=== PATIENT | male | born 1960 ===

== ENCOUNTER 2018-09-02 09:00 | Emergency (ER) | payer MEDICAID, OTHER ==
[2018-09-02 09:04] VITALS: RESP 17; TEMP 97.5; O2SAT 98
[2018-09-02 09:24] VITALS: BP 149/86; PULSE 76
--- NOTE | 2018-09-02 09:37 | ED PDOC ---
HPI: Back Time Seen by Provider: 09/02/18 09:14 Chief Complaint (Nursing): Abnormal Skin Integrity Chief Complaint (Provider): tailbone pain History Per: Patient History/Exam Limitations: no limitations Onset/Duration Of Symptoms: Days (1-2 months) Current Symptoms Are (Timing): Still Present Quality Of Discomfort: Sharp Severity: Moderate Previous Symptoms: Back Pain, Other (pilonidial cyst) Associated Symptoms: None Exacerbating Factor(s): Sitting Additional Complaint(s): 57yo male hx pilonidial cyst presents c/o tailbone pain ongoing for >1month, prior also had cyst, denies fever, drainage or swelling of area. Denies trauma or injury. Sits alot as drives bus. Denies radiation of pain, pain with defecation or urination, abdominal or flank pain. Past Medical History Reviewed: Historical Data, Nursing Documentation, Vital Signs Vital Signs: Last Vital Signs Temp 97.5 F L 09/02/18 09:04 Pulse 76 09/02/18 09:23 Resp 17 09/02/18 09:04 BP 149/86 09/02/18 09:23 Pulse Ox 98 09/02/18 09:04 - Medical History PMH: Anxiety - Family History Family History: States: Unknown Family Hx - Living Arrangements Living Arrangements: With Family - Social History Current smoker - smoking cessation education provided: No - Home Medications Home Medications: Ambulatory Orders Medication Instructions Recorded Albuterol Sulfate [Albuterol Hfa] 0.09 mg IH Q4 PRN #1 ml 12/21/14 Azithromycin [Zithromax] 250 mg PO DAILY #6 tab 12/21/14 Guaifenesin [Mucinex] 600 mg PO TID PRN #10 tab 12/21/14 Loratadine [Claritin] 10 mg PO DAILY #10 tab 12/21/14 Ibuprofen [Motrin Tab] 600 mg PO Q6 PRN #15 tab 09/02/18 - Allergies Allergies/Adverse Reactions: Allergies Allergy/AdvReac Type Severity Reaction Status Date / Time No Known Allergies Allergy Verified 12/21/14 06:17 Review of Systems ROS Statement: Except As Marked, All Systems Reviewed And Found Negative Constitutional: Negative for: Fever Cardiovascular: Negative for: Chest Pain Respiratory: Negative for: Cough Gastrointestinal: Negative for: Abdominal Pain Genitourinary Male: Negative for: Dysuria, Frequency Musculoskeletal: Positive for: Other (tailbone pain). Negative for: Arm Pain, Back Pain, Hand Pain, Leg Pain Skin: Negative for: Rash, Lesions, Jaundice Neurological: Negative for: Weakness, Numbness Psych: Negative for: Suicidal ideation Physical Exam - Reviewed Nursing Documentation Reviewed: Yes Vital Signs Reviewed: Yes - Physical Exam Appears: Positive for: Well, Non-toxic Head Exam: Positive for: ATRAUMATIC Skin: Positive for: Normal Color, Warm, Dry. Negative for: Rash Cardiovascular/Chest: Negative for: Tachycardia Respiratory: Negative for: Respiratory Distress Back: Positive for: Normal Inspection, Other (mild tenderness coccyx without edema, fluctuance or drainage. Trace isolated erythema coccyx, nontracking.) Rectal: Positive for: Normal Exam, Rectal Tone Is: (normal). Negative for: Blood Streaked Stool, Tenderness Extremity: Negative for: Tenderness, Swelling Neurologic/Psych: Positive for: Alert, Oriented. Negative for: Motor/Sensory Deficits - ECG O2 Sat by Pulse Oximetry: 98 Medical Decision Making Medical Decision Making: BP elevated but pt states always elevated at doctor and returns to normal at home, does not want workup for HTN No clinical evidence of acute pilonidial infection, but refer to PMD / surgery for eval may need definitive surgical management for symptoms. Accession No. : [id number] Patient Name / ID : YUNG VALENCIA / [id number] Exam Date : 09/02/2018 09:50:22 ( Approved ) Study Comment : Sex / Age : M / 57Y Creator : Jc Butcher MD Dictator : Jc Butcher MD Bus Washer : Cadd Technician : Jc Butcher MD Approver2 : Report Date : 09/02/2018 11:30:13 My Comment : Date of service: 09/02/2018 PROCEDURE: Radiographs of the Sacrum and Coccyx HISTORY: coccyx pain x1 month COMPARISON: None available. TECHNIQUE: Frontal and lateral views of the sacrum and coccyx FINDINGS: BONES: Sacrum and coccyx unremarkable. No fracture or focal lesion. SACROILIAC JOINTS: Unremarkable. OTHER FINDINGS: None. IMPRESSION: Unremarkable radiographs of the sacrum and coccyx. Given instructions for coccxodynia cushion and followup PMD. No addressable infection or fluid collection today to I&D or Rx Abx. 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 Disposition - Clinical Impression Clinical Impression: Coccyodynia - Patient ED Disposition Is Patient to be Admitted: No Counseled Patient/Family Regarding: Studies Performed, Diagnosis, Need For Followup, Rx Given - Disposition Referrals: Non [facility] Provider, [Primary Care Provider] - Disposition: Routine/Home Disposition Time: 11:40 Condition: STABLE Additional Instructions: Followup with PMD for possible MRI or further testing, surgery referral if pilonidial cyst returns. Use cushion donut to decompress tailbone with sitting for prolonged periods. Have PMD check blood pressure within next 7 days/ return to ER for any swelling, worsening pain, fever, discharge from tailbone or any concern. Prescriptions: Ibuprofen [Motrin Tab] 600 mg PO Q6 PRN #15 tab PRN Reason: Pain, Moderate (4-7) Instructions: Sacroiliac Joint Pain (DC), Pilonidal Cyst (DC), Coccyx Injury (DC) Forms: [employer] ([place])
--- NOTE | 2018-09-02 11:33 | RAD ---
Date of service: 09/02/2018 PROCEDURE: Radiographs of the Sacrum and Coccyx HISTORY: coccyx pain x1 month COMPARISON: None available. TECHNIQUE: Frontal and lateral views of the sacrum and coccyx FINDINGS: BONES: Sacrum and coccyx unremarkable. No fracture or focal lesion. SACROILIAC JOINTS: Unremarkable. OTHER FINDINGS: None. IMPRESSION: Unremarkable radiographs of the sacrum and coccyx.
== END 2018-09-02 12:16 | disposition home or self-care (01) ==
LOC: SUPCPDRO 09:00 → H.ER 09:00
DX: M53.3 Sacrococcygeal disorders, not elsewhere classified (principal); F41.9 Anxiety disorder, unspecified